=== PATIENT | female | born 1960 | race Caucasian/White ===

== ENCOUNTER → 2024-02-25 09:25 | Outpatient (REF) | payer MEDICARE, BC, SELFPAY | LOC: HWRAD 09:25 | PROVIDERS: ATTENDING PHYSICIAN Neurological Surgery; FAMILY PHYSICIAN Internal Medicine | DX: M54.50 Low back pain, unspecified (principal); G89.29 Other chronic pain; Z78.0 Asymptomatic menopausal state | CPT/HCPCS: 72131 ==